=== PATIENT | male | born 1985 | race African-American/Black ===

== ENCOUNTER 2017-03-20 16:49 | Emergency (ER) | payer MEDICAID ==
[~2017-03-20] VITALS: Ht 175.3 cm; Wt 94.3 kg
[2017-03-20 17:29] VITALS: BP 122/82
[2017-03-20] MEDS ORDERED: cefTRIAXone SOD 1,000 MG VL IM ONE (17:45)
== END 2017-03-20 18:07 | disposition home or self-care (01) ==
LOC: ER 16:57
DX: J03.90 Acute tonsillitis, unspecified (principal)
CPT/HCPCS: 96372; 99283; J0696